=== PATIENT | male | born 1945 | race Caucasian/White ===

== ENCOUNTER 2018-06-09 12:25 | Observation (INO) | payer MEDICARE, OTHER ==
[2018-06-09] MEDS ORDERED: Sodium Chloride 0.9% 10 ML Syringe FLUSH PRN (12:26)
[2018-06-09] MEDS ORDERED: Sodium Chloride 0.9% 2.5 ML Syringe FLUSH PRN (12:26)
--- NOTE | 2018-06-09 12:28 | EDM.PDOC ---
ED HPI GENERAL MEDICAL PROBLEM - General Chief Complaint: Respiratory Problem Stated Complaint: SHORTNESS OF BREATH Time Seen by Provider: 06/09/18 12:27 Source of Information: Reports: Patient History Limitations: Reports: No Limitations - History of Present Illness INITIAL COMMENTS - FREE TEXT/NARRATIVE: HISTORY AND PHYSICAL: History of present illness: Patient is a 73-year-old male presents to the ED with complaint of shortness of breath. 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 Patient is normally on 3 L nasal cannula at home since January when he had pneumonia and pleural effusion. He states he has had shortness of breath since yesterday but denies chest pain. He has a chronic productive cough which he states is unchanged. He denies fevers or chills, nausea, vomiting, diarrhea, abdominal pain. He has been having the pleural effusions drained about every 6 weeks, last time being 2 weeks ago. Review of systems: As per history of present illness and below otherwise all systems reviewed and negative. Past medical history: As per history of present illness and as reviewed below otherwise noncontributory. Surgical history: As per history of present illness and as reviewed below otherwise noncontributory. Social history: No reported history of drug or alcohol abuse. Family history: As per history of present illness and as reviewed below otherwise noncontributory. Physical exam: General: Patient sitting comfortably in no acute distress and nontoxic appearing HEENT: Atraumatic, normocephalic, pupils reactive, negative for conjunctival pallor or scleral icterus, mucous membranes moist, throat clear, neck supple, nontender, trachea midline. No meningeal signs. Lungs: Diffuse rhonchi and wheezing, chest nontender. Heart: S1S2, regular, negative for clicks, rubs, or overt murmur. Abdomen: Soft, nondistended, nontender. Negative for masses or hepatosplenomegaly. Negative for costovertebral tenderness. Pelvis: Stable nontender. Genitourinary: Deferred. Rectal: Deferred. Extremities: Atraumatic, negative for cords or calf pain. Neurovascular unremarkable. Neuro: Awake, alert, oriented. Cranial nerves II through XII unremarkable. Cerebellum unremarkable. Motor and sensory unremarkable throughout. Exam nonfocal. Notes: Diagnostics: CBC, CMP, troponin, chest x-ray, EKG Therapeutics: DuoNeb O2 Prescriptions: None Impression: Pleural effusion, hypoxia Plan: Discussed with Dr. Appiah, patient will be admitted to observation for hypoxia and possible thoracentesis. Definitive disposition and diagnosis as appropriate pending reevaluation and review of above. - Related Data Allergies Allergy/AdvReac Type Severity Reaction Status Date / Time No Known Allergies Allergy Verified 10/13/14 08:28 Home Meds: Home Meds Calcium Carbonate/Vitamin D3 [Calcium 500-Vit D3 200 Caplet] 1 tab PO BID [History] Fish Oil/[place]-3 Fatty Acids [Fish Oil 1,000 MG] 1 cap PO TID 06/09/18 [History] Leuprolide Acetate [Eligard] 45 mg SQ ASDIRECTED 06/09/18 [History] Mirtazapine 30 mg PO BEDTIME 06/09/18 [History] Prochlorperazine Maleate [Compazine] 10 mg PO Q6H PRN 06/09/18 [History] Tamsulosin [Flomax] 0.4 mg PO DAILY 06/09/18 [History] atorvaSTATin [Lipitor] 06/09/18 [History] predniSONE [Prednisone] 5 mg PO BID 06/09/18 [History] ED ROS GENERAL - Review of Systems Review Of Systems: ROS reveals no pertinent complaints other than HPI. ED EXAM, GENERAL - Physical Exam Exam: See Below (See dictation) Course - Vital Signs Last Recorded V/S: Last Vital Signs Temp 97.8 F 06/09/18 12:35 Pulse Resp BP Pulse Ox 97 06/09/18 12:26 - Orders/Labs/Meds Orders: Active Orders 24 hr Category Date Time Status EKG Documentation Completion [RC] STAT Care 06/09/18 12:26 Active Oxygen Therapy [RC] ASDIRECTED Care 06/09/18 12:26 Active RT Aerosol Therapy [RC] ASDIRECTED Care 06/09/18 12:37 Active CULTURE SPUTUM + SMEAR [RM] Stat Lab 06/09/18 12:55 Results Sodium Chloride 0.9% [Saline Flush] Med 06/09/18 12:26 Active 10 ml FLUSH ASDIRECTED PRN Sodium Chloride 0.9% [Saline Flush] Med 06/09/18 12:26 Active 2.5 ml FLUSH ASDIRECTED PRN Saline Lock Insert [OM.PC] Stat Oth 06/09/18 12:26 Ordered Medication Orders Sodium Chloride (Saline Flush) 10 ml FLUSH ASDIRECTED PRN PRN Reason: Keep Vein Open Sodium Chloride (Saline Flush) 2.5 ml FLUSH ASDIRECTED PRN PRN Reason: Keep Vein Open Labs: Laboratory Tests 06/09/18 06/09/18 06/09/18 Range/Units 12:55 12:55 12:55 WBC 7.32 (4.0-11.0) K/uL RBC 3.72 L (4.50-5.90) M/uL Hgb 10.2 L (13.0-17.0) g/dL Hct 34.2 L (38.0-50.0) % MCV 91.9 (80.0-98.0) fL MCH 27.4 (27.0-32.0) pg MCHC 29.8 L (31.0-37.0) g/dL RDW Std Deviation 72.0 H (28.0-62.0) fl RDW Coeff of Ben 21 H (11.0-15.0) % Plt Count 271 (150-400) K/uL MPV 8.20 (7.40-12.00) fL Neut % (Auto) 84.9 H (48.0-80.0) % Lymph % (Auto) 4.2 L (16.0-40.0) % Crowley % (Auto) 10.5 (0.0-15.0) % Eos % (Auto) 0.1 (0.0-7.0) % Baso % (Auto) 0.3 (0.0-1.5) % Neut # (Auto) 6.2 H (1.4-5.7) K/uL Lymph # (Auto) 0.3 L (0.6-2.4) K/uL Crowley # (Auto) 0.8 (0.0-0.8) K/uL Eos # (Auto) 0.0 (0.0-0.7) K/uL Baso # (Auto) 0.0 (0.0-0.1) K/uL Nucleated RBC % 0.0 /100WBC Nucleated RBCs # 0 K/uL Sodium 143 (136-148) mmol/L Potassium 4.1 (3.5-5.1) mmol/L Chloride 102 (98-107) mmol/L Carbon Dioxide 37.8 H (21.0-32.0) mmol/L BUN 24 H (7.0-18.0) mg/dL Creatinine 0.6 L (0.8-1.3) mg/dL Est Cr Clr Drug Dosing 116.38 mL/min Estimated GFR (MDRD) > 60.0 ml/min Glucose 110 H (74-106) mg/dL Calcium 9.3 (8.5-10.1) mg/dL Total Bilirubin 0.2 (0.2-1.0) mg/dL AST 13 L (15-37) IU/L ALT 21 (14-63) IU/L Alkaline Phosphatase 89 (46-116) U/L Troponin I < 0.050 (0.000-0.056) ng/mL B-Natriuretic Peptide 30 (<100) PG/ML Total Protein 6.7 (6.4-8.2) g/dL Albumin 2.3 L (3.4-5.0) g/dL Globulin 4.4 H (2.6-4.0) g/dL Albumin/Globulin Ratio 0.5 L (0.9-1.6) Meds: Medications Generic Name Dose Route Start Last Admin Trade Name Freq PRN Reason Stop Dose Admin Sodium Chloride 10 ml 06/09/18 12:26 Saline Flush FLUSH ASDIRECTED PRN Keep Vein Open Sodium Chloride 2.5 ml 06/09/18 12:26 Saline Flush FLUSH ASDIRECTED PRN Keep Vein Open Discontinued Medications Generic Name Dose Route Start Last Admin Trade Name Freq PRN Reason Stop Dose Admin Albuterol/Ipratropium 3 ml 06/09/18 12:37 06/09/18 12:45 Duoneb 3.0-0.5 Mg/3 Ml NEB 06/09/18 12:38 3 ml ONETIME ONE Administration Departure - Departure Time of Disposition: 14:07 Disposition: Home, Self-Care 01 Condition: Good Clinical Impression: Hypoxia, Pleural effusion - Discharge Information Referrals: PCP,Unknown [Primary Care Provider] - Forms: ED Department Discharge - My Orders Last 24 Hours: My Active Orders 06/09/18 12:26 EKG Documentation Completion [RC] STAT Oxygen Therapy [RC] ASDIRECTED Sodium Chloride 0.9% [Saline Flush] 10 ml FLUSH ASDIRECTED PRN Sodium Chloride 0.9% [Saline Flush] 2.5 ml FLUSH ASDIRECTED PRN Saline Lock Insert [OM.PC] Stat 06/09/18 12:37 RT Aerosol Therapy [RC] ASDIRECTED 06/09/18 12:55 CULTURE SPUTUM + SMEAR [RM] Stat - Assessment/Plan Last 24 Hours: My Active Orders 06/09/18 12:26 EKG Documentation Completion [RC] STAT Oxygen Therapy [RC] ASDIRECTED Sodium Chloride 0.9% [Saline Flush] 10 ml FLUSH ASDIRECTED PRN Sodium Chloride 0.9% [Saline Flush] 2.5 ml FLUSH ASDIRECTED PRN Saline Lock Insert [OM.PC] Stat 06/09/18 12:37 RT Aerosol Therapy [RC] ASDIRECTED 06/09/18 12:55 CULTURE SPUTUM + SMEAR [RM] Stat
[2018-06-09] MEDS ORDERED: Albuterol/Ipratropium 3.0-0.5 MG/3 ML Neb Soln NEB ONE (12:37)
--- NOTE | 2018-06-09 13:24 | CR ---
EXAMINATION: Portable chest radiograph. HISTORY: Shortness of breath. FINDINGS: The trachea is midline. The heart is normal in size. There is a moderate left and small right pleural effusion with adjacent atelectasis and/or infiltrate. Extensive diffuse osseous metastatic shaft changes again noted. IMPRESSION: 1. Moderate left and small right pleural effusion.
[2018-06-09 13:30] LABS: CHLORIDE,CL 102 mmol/L (98-107); SODIUM,NA 143 mmol/L (136-148)
[2018-06-09] MEDS ORDERED: Ibuprofen 800 MG Tab PO PRN (14:56)
[2018-06-09] MEDS ORDERED: Polyethylene Glycol 3350 Powder 17 GM Packet PO PRN (14:56)
[2018-06-09] MEDS ORDERED: Docusate Sodium 100 MG Cap PO PRN (14:56)
[2018-06-09] MEDS ORDERED: Temazepam 15 MG Cap PO PRN (14:56)
[2018-06-09] MEDS ORDERED: Ondansetron 4 MG/2 ML SDV IVPUSH PRN (14:56)
[2018-06-09] MEDS ORDERED: Acetaminophen 325 MG Tab PO PRN (14:56)
[2018-06-09] MEDS ORDERED: Ketorolac 30 MG/ML SDV IM PRN (14:56)
[2018-06-09] MEDS ORDERED: Ondansetron 4 MG Tab.DIS PO PRN (14:56)
--- NOTE | 2018-06-09 15:14 | PCM.HP ---
<Andres GutierrezCollin longoria - Last Filed: 06/09/18 15:24> H&P History of Present Illness - General Date of Service: 06/09/18 Admit Problem/Dx: Admission Diagnosis/Problem Admission Diagnosis/Problem Hypoxia - History of Present Illness Initial Comments - Free Text/Narative: Fidel Cavanaugh is a 73 y/o male with history of adenocarcinoma of the prostate with metastases to the lungs. He was at the [facility] where he was suppose to get his chemotherapy, however, he was noted to be hypoxic in the 70's with activity and started on a rebreather. He was sent to the ER from the [facility] where chest xray showed a large left pleural effusion. He was taken off the rebreather and now his O2 sats are in the mid 90's on 3 L mask. No increased work of breathing at rest. States he has been coughing for some months now ever since he was diagnosed with pneumonia few months ago last summer. In addition, states that he had a thoracentesis about 1-2 weeks ago which removed 1.5 pleural fluid. Denies any chest pain. No abdominal pain, dysuria. Has chronic diarrhea. In addition, his lower extremities have pitting edema for months now. Denies any pain. - Related Data Allergies/Adverse Reactions: Allergies Allergy/AdvReac Type Severity Reaction Status Date / Time No Known Allergies Allergy Verified 10/13/14 08:28 Home Medications: Home Meds Calcium Carbonate/Vitamin D3 [Calcium 500-Vit D3 200 Caplet] 1 tab PO BID [History] Fish Oil/[place]-3 Fatty Acids [Fish Oil 1,000 MG] 1 cap PO TID 06/09/18 [History] Leuprolide Acetate [Eligard] 45 mg SQ ASDIRECTED 06/09/18 [History] Mirtazapine 30 mg PO BEDTIME 06/09/18 [History] Prochlorperazine Maleate [Compazine] 10 mg PO Q6H PRN 06/09/18 [History] Tamsulosin [Flomax] 0.4 mg PO DAILY 06/09/18 [History] atorvaSTATin [Lipitor] 06/09/18 [History] predniSONE [Prednisone] 5 mg PO BID 06/09/18 [History] Past Medical History Genitourinary History: Reports: Other (See Below) Other Genitourinary History: metastatic prostate cancer- chemo Social & Family History - Family History Family Medical History: Noncontributory - Tobacco Use Smoking Status *Q: Former Smoker Used Tobacco, but Quit: Yes Month/Year Tobacco Last Used: 1 year ago Second Hand Smoke Exposure: No - Caffeine Use Caffeine Use: Reports: None - Recreational Drug Use Recreational Drug Use: No H&P Review of Systems - Review of Systems: Review Of Systems: ROS reveals no pertinent complaints other than HPI. Exam - Exam Exam: See Below - Vital Signs Vital Signs: Last Vital Signs Temp 36.6 C 06/09/18 12:35 Pulse 91 06/09/18 14:36 Resp 18 06/09/18 14:36 BP 140/73 06/09/18 14:36 Pulse Ox 94 L 06/09/18 14:36 Weight: 73.936 kg - Exam General: Alert, Oriented, Cooperative HEENT: Conjunctiva Clear, Mucosa Moist & [place] Lungs: Other (bibasilar crackles, left greater than right. Decreased breath sounds on left lung. No increased work of breathing.) Cardiovascular: Regular Rate, Regular Rhythm GI/Abdominal Exam: Normal Bowel Sounds, Soft, Non-Tender, No Distention Extremities: Other (3+ pittind edema up to knees bilaterally) Skin: Warm, Dry Neurological: Cranial Nerves Intact Neuro Extensive - Mental Status: Alert, Oriented x3 - Patient Data Lab Results Last 24 hrs: Laboratory Results - last 24 hr 06/09/18 06/09/18 06/09/18 Range/Units 12:55 12:55 12:55 WBC 7.32 (4.0-11.0) K/uL RBC 3.72 L (4.50-5.90) M/uL Hgb 10.2 L (13.0-17.0) g/dL Hct 34.2 L (38.0-50.0) % MCV 91.9 (80.0-98.0) fL MCH 27.4 (27.0-32.0) pg MCHC 29.8 L (31.0-37.0) g/dL RDW Std Deviation 72.0 H (28.0-62.0) fl RDW Coeff of Ben 21 H (11.0-15.0) % Plt Count 271 (150-400) K/uL MPV 8.20 (7.40-12.00) fL Neut % (Auto) 84.9 H (48.0-80.0) % Lymph % (Auto) 4.2 L (16.0-40.0) % Fleming % (Auto) 10.5 (0.0-15.0) % Eos % (Auto) 0.1 (0.0-7.0) % Baso % (Auto) 0.3 (0.0-1.5) % Neut # (Auto) 6.2 H (1.4-5.7) K/uL Lymph # (Auto) 0.3 L (0.6-2.4) K/uL Fleming # (Auto) 0.8 (0.0-0.8) K/uL Eos # (Auto) 0.0 (0.0-0.7) K/uL Baso # (Auto) 0.0 (0.0-0.1) K/uL Nucleated RBC % 0.0 /100WBC Nucleated RBCs # 0 K/uL Sodium 143 (136-148) mmol/L Potassium 4.1 (3.5-5.1) mmol/L Chloride 102 (98-107) mmol/L Carbon Dioxide 37.8 H (21.0-32.0) mmol/L BUN 24 H (7.0-18.0) mg/dL Creatinine 0.6 L (0.8-1.3) mg/dL Est Cr Clr Drug Dosing 116.38 mL/min Estimated GFR (MDRD) > 60.0 ml/min Glucose 110 H (74-106) mg/dL Calcium 9.3 (8.5-10.1) mg/dL Total Bilirubin 0.2 (0.2-1.0) mg/dL AST 13 L (15-37) IU/L ALT 21 (14-63) IU/L Alkaline Phosphatase 89 (46-116) U/L Troponin I < 0.050 (0.000-0.056) ng/mL B-Natriuretic Peptide 30 (<100) PG/ML Total Protein 6.7 (6.4-8.2) g/dL Albumin 2.3 L (3.4-5.0) g/dL Globulin 4.4 H (2.6-4.0) g/dL Albumin/Globulin Ratio 0.5 L (0.9-1.6) Result Diagrams: 06/09/18 12:55 06/09/18 12:55 Rodrigo Results Last 24 hrs: Microbiology 06/09/18 12:32 Influenza Type A Antigen Screen - Final Nasopharyngeal Swab NEGATIVE INFLUENZA A VIRUS AG Influenza Type B Antigen Screen - Final NEGATIVE INFLUENZA B VIRUS AG 06/09/18 12:55 Gram Stain - Preliminary Sputum - Expectorated Problem List Initiated/Reviewed/Updated: Yes Orders Last 24hrs: Active Orders 24 hr Category Date Time Status Admission Status [Patient Status] [ADT] Stat ADT 06/09/18 14:17 Active Oxygen Therapy [RC] ASDIRECTED Care 06/09/18 12:26 Active Oxygen Therapy [RC] PRN Care 06/09/18 14:56 Active RT Aerosol Therapy [RC] ASDIRECTED Care 06/09/18 12:37 Active RT Aerosol Therapy [RC] ASDIRECTED Care 06/09/18 14:58 Active Up ad Kierra [RC] ASDIRECTED Care 06/09/18 14:56 Active VTE/DVT Education [RC] PER UNIT ROUTINE Care 06/09/18 14:56 Active Vital Signs [RC] Q4H Care 06/09/18 14:56 Active PT Evaluation and Treatment [CONS] Routine Cons 06/09/18 14:56 Active Regular Diet [DIET] Diet 06/09/18 Dinner Active CULTURE SPUTUM + SMEAR [RM] Stat Lab 06/09/18 12:55 Results Acetaminophen [Tylenol] Med 06/09/18 14:56 Active 650 mg PO Q4H PRN Albuterol/Ipratropium [DuoNeb 3.0-0.5 MG/3 ML] Med 06/09/18 14:56 Active 3 ml NEB Q4HRRT PRN Docusate Sodium [Colace] Med 06/09/18 14:56 Active 100 mg PO BID PRN Enoxaparin [Lovenox] Med 06/09/18 15:00 Active 40 mg SUBCUT Q24H Ibuprofen [Motrin] Med 06/09/18 14:56 Active 800 mg PO Q6H PRN Ketorolac [Toradol] Med 06/09/18 14:56 Active 30 mg IM Q6H PRN Ondansetron [Zofran ODT] Med 06/09/18 14:56 Active 4 mg PO Q4H PRN Ondansetron [Zofran] Med 06/09/18 14:56 Active 4 mg IVPUSH Q4H PRN Polyethylene Glycol 3350 [MiraLAX] Med 06/09/18 14:56 Active 17 gm PO DAILY PRN Sodium Chloride 0.9% [Saline Flush] Med 06/09/18 12:26 Active 10 ml FLUSH ASDIRECTED PRN Sodium Chloride 0.9% [Saline Flush] Med 06/09/18 12:26 Active 2.5 ml FLUSH ASDIRECTED PRN Temazepam [Restoril] Med 06/09/18 14:56 Active 15 mg PO BEDTIME PRN Saline Lock Insert [OM.PC] Stat Oth 06/09/18 12:26 Ordered Medication Orders Acetaminophen (Tylenol) 650 mg PO Q4H PRN PRN Reason: Pain (Mild 1-3)/fever Albuterol/Ipratropium (Duoneb 3.0-0.5 Mg/3 Ml) 3 ml NEB Q4HRRT PRN PRN Reason: Shortness Of Breath/wheezing Docusate Sodium (Colace) 100 mg PO BID PRN PRN Reason: Constipation Enoxaparin Sodium (Lovenox) 40 mg SUBCUT Q24H JAMES Ibuprofen (Motrin) 800 mg PO Q6H PRN PRN Reason: Pain (mild 1-3) Ketorolac Tromethamine (Toradol) 30 mg IM Q6H PRN PRN Reason: Pain (moderate 4-6) Ondansetron HCl (Zofran Odt) 4 mg PO Q4H PRN PRN Reason: nausea, able to take PO Ondansetron HCl (Zofran) 4 mg IVPUSH Q4H PRN PRN Reason: Nausea Polyethylene Glycol (Miralax) 17 gm PO DAILY PRN PRN Reason: Constipation Sodium Chloride (Saline Flush) 10 ml FLUSH ASDIRECTED PRN PRN Reason: Keep Vein Open Sodium Chloride (Saline Flush) 2.5 ml FLUSH ASDIRECTED PRN PRN Reason: Keep Vein Open Temazepam (Restoril) 15 mg PO BEDTIME PRN PRN Reason: Sleep Assessment/Plan Comment:: A: 1. Acute on chronic hypoxic respiratory failure 2. Left pleural effusion 3. Normocytic anemia 4. Lower extremity edema 5. 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 Admit as observation to the medical floor. 2. Vitals, I/O per floor routine. Supplemental O2. 3. Activity: ad kierra 4. Diet: regular 5. DVT prophylaxis: lovenox 6. Code status: 1. Acute on chronic hypoxic respiratory failure 2/2 to pleural effusions. Will need therapeutic thoracentesis. Continue supplemental O2. 2. Normocytic anemia, likely 2/2 to chemoradiation. Continue to monitor. 3. Lower extremity edema. Likely 2/2 to history of radiation therapy of the prostate and mets to lungs. Will order Echo. Will do trial of lasix and see if his blood pressure remains stable. Dispo: 1-2 days <Manuel Appiah - Last Filed: 06/09/18 15:40> H&P History of Present Illness - General Admit Problem/Dx: Admission Diagnosis/Problem Admission Diagnosis/Problem Hypoxia I have seen and examined the patient independently of medical office professional instructor. I have discussed the case with the resident. I agree with the assessment and plan of care outlined for this patient. Please see orders. May need pleuradex for frequently reoccurring pleural effusions. Exam - Vital Signs Vital Signs: Last Vital Signs Temp 36.8 C 06/09/18 15:07 Pulse 84 06/09/18 15:07 Resp 20 06/09/18 15:07 BP 139/74 06/09/18 15:07 Pulse Ox 97 06/09/18 15:07 - Patient Data Lab Results Last 24 hrs: Laboratory Results - last 24 hr 06/09/18 06/09/18 06/09/18 Range/Units 12:55 12:55 12:55 WBC 7.32 (4.0-11.0) K/uL RBC 3.72 L (4.50-5.90) M/uL Hgb 10.2 L (13.0-17.0) g/dL Hct 34.2 L (38.0-50.0) % MCV 91.9 (80.0-98.0) fL MCH 27.4 (27.0-32.0) pg MCHC 29.8 L (31.0-37.0) g/dL RDW Std Deviation 72.0 H (28.0-62.0) fl RDW Coeff of Ben 21 H (11.0-15.0) % Plt Count 271 (150-400) K/uL MPV 8.20 (7.40-12.00) fL Neut % (Auto) 84.9 H (48.0-80.0) % Lymph % (Auto) 4.2 L (16.0-40.0) % Fleming % (Auto) 10.5 (0.0-15.0) % Eos % (Auto) 0.1 (0.0-7.0) % Baso % (Auto) 0.3 (0.0-1.5) % Neut # (Auto) 6.2 H (1.4-5.7) K/uL Lymph # (Auto) 0.3 L (0.6-2.4) K/uL Fleming # (Auto) 0.8 (0.0-0.8) K/uL Eos # (Auto) 0.0 (0.0-0.7) K/uL Baso # (Auto) 0.0 (0.0-0.1) K/uL Nucleated RBC % 0.0 /100WBC Nucleated RBCs # 0 K/uL Sodium 143 (136-148) mmol/L Potassium 4.1 (3.5-5.1) mmol/L Chloride 102 (98-107) mmol/L Carbon Dioxide 37.8 H (21.0-32.0) mmol/L BUN 24 H (7.0-18.0) mg/dL Creatinine 0.6 L (0.8-1.3) mg/dL Est Cr Clr Drug Dosing 116.38 mL/min Estimated GFR (MDRD) > 60.0 ml/min Glucose 110 H (74-106) mg/dL Calcium 9.3 (8.5-10.1) mg/dL Total Bilirubin 0.2 (0.2-1.0) mg/dL AST 13 L (15-37) IU/L ALT 21 (14-63) IU/L Alkaline Phosphatase 89 (46-116) U/L Troponin I < 0.050 (0.000-0.056) ng/mL B-Natriuretic Peptide 30 (<100) PG/ML Total Protein 6.7 (6.4-8.2) g/dL Albumin 2.3 L (3.4-5.0) g/dL Globulin 4.4 H (2.6-4.0) g/dL Albumin/Globulin Ratio 0.5 L (0.9-1.6) Result Diagrams: 06/09/18 12:55 06/09/18 12:55 Rodrigo Results Last 24 hrs: Microbiology 06/09/18 12:32 Influenza Type A Antigen Screen - Final Nasopharyngeal Swab NEGATIVE INFLUENZA A VIRUS AG Influenza Type B Antigen Screen - Final NEGATIVE INFLUENZA B VIRUS AG 06/09/18 12:55 Gram Stain - Preliminary Sputum - Expectorated Orders Last 24hrs: Active Orders 24 hr Category Date Time Status Admission Status [Patient Status] [ADT] Stat ADT 06/09/18 14:17 Active Intake and Output Strict [RC] ASDIRECTED Care 06/09/18 15:34 Active Oxygen Therapy [RC] ASDIRECTED Care 06/09/18 12:26 Active Oxygen Therapy [RC] PRN Care 06/09/18 14:56 Active RT Aerosol Therapy [RC] ASDIRECTED Care 06/09/18 12:37 Active RT Aerosol Therapy [RC] ASDIRECTED Care 06/09/18 14:58 Active Up ad Kierra [RC] ASDIRECTED Care 06/09/18 14:56 Active VTE/DVT Education [RC] PER UNIT ROUTINE Care 06/09/18 14:56 Active Vital Signs [RC] Q4H Care 06/09/18 14:56 Active PT Evaluation and Treatment [CONS] Routine Cons 06/09/18 14:56 Active Regular Diet [DIET] Diet 06/09/18 Dinner Active Echo 2D wo Cont [US] Routine Exams 06/09/18 15:36 Ordered CULTURE SPUTUM + SMEAR [RM] Stat Lab 06/09/18 12:55 Results Acetaminophen [Tylenol] Med 06/09/18 14:56 Active 650 mg PO Q4H PRN Albuterol/Ipratropium [DuoNeb 3.0-0.5 MG/3 ML] Med 06/09/18 14:56 Active 3 ml NEB Q4HRRT PRN Docusate Sodium [Colace] Med 06/09/18 14:56 Active 100 mg PO BID PRN Enoxaparin [Lovenox] Med 06/09/18 15:00 Active 40 mg SUBCUT Q24H Ibuprofen [Motrin] Med 06/09/18 14:56 Active 800 mg PO Q6H PRN Ketorolac [Toradol] Med 06/09/18 14:56 Active 30 mg IM Q6H PRN Ondansetron [Zofran ODT] Med 06/09/18 14:56 Active 4 mg PO Q4H PRN Ondansetron [Zofran] Med 06/09/18 14:56 Active 4 mg IVPUSH Q4H PRN Polyethylene Glycol 3350 [MiraLAX] Med 06/09/18 14:56 Active 17 gm PO DAILY PRN Sodium Chloride 0.9% [Saline Flush] Med 06/09/18 12:26 Active 10 ml FLUSH ASDIRECTED PRN Sodium Chloride 0.9% [Saline Flush] Med 06/09/18 12:26 Active 2.5 ml FLUSH ASDIRECTED PRN Temazepam [Restoril] Med 06/09/18 14:56 Active 15 mg PO BEDTIME PRN Saline Lock Insert [OM.PC] Stat Oth 06/09/18 12:26 Ordered Resuscitation Status Routine Resus Stat 06/09/18 15:33 Ordered Medication Orders Acetaminophen (Tylenol) 650 mg PO Q4H PRN PRN Reason: Pain (Mild 1-3)/fever Albuterol/Ipratropium (Duoneb 3.0-0.5 Mg/3 Ml) 3 ml NEB Q4HRRT PRN PRN Reason: Shortness Of Breath/wheezing Docusate Sodium (Colace) 100 mg PO BID PRN PRN Reason: Constipation Enoxaparin Sodium (Lovenox) 40 mg SUBCUT Q24H JAMES Ibuprofen (Motrin) 800 mg PO Q6H PRN PRN Reason: Pain (mild 1-3) Ketorolac Tromethamine (Toradol) 30 mg IM Q6H PRN PRN Reason: Pain (moderate 4-6) Ondansetron HCl (Zofran Odt) 4 mg PO Q4H PRN PRN Reason: nausea, able to take PO Ondansetron HCl (Zofran) 4 mg IVPUSH Q4H PRN PRN Reason: Nausea Polyethylene Glycol (Miralax) 17 gm PO DAILY PRN PRN Reason: Constipation Sodium Chloride (Saline Flush) 10 ml FLUSH ASDIRECTED PRN PRN Reason: Keep Vein Open Sodium Chloride (Saline Flush) 2.5 ml FLUSH ASDIRECTED PRN PRN Reason: Keep Vein Open Temazepam (Restoril) 15 mg PO BEDTIME PRN PRN Reason: Sleep
[2018-06-09] MEDS ORDERED: Prochlorperazine 10 MG Tab PO PRN (15:37)
[2018-06-09] MEDS ORDERED: Furosemide 20 MG/2 ML VIAL IVPUSH ONE (15:40)
[2018-06-09] MEDS ORDERED: Morphine 2 MG/ML Syringe IVPUSH PRN (15:44)
[2018-06-09] MEDS: Enoxaparin 40 MG/0.4 ML Syringe SUBCUT SCH (16:13)
[2018-06-09] MEDS: Albuterol/Ipratropium 3.0-0.5 MG/3 ML Neb Soln NEB PRN (21:04)
[2018-06-09] MEDS: Mirtazapine 15 MG Tab PO SCH (21:06)
[2018-06-09] MEDS: Fish Oil/Omega-3 Fatty Acids 1 Gm Cap PO SCH (21:06)
[2018-06-09] MEDS: Calcium Carbonate/Vitamin D3 1500 MG-400 Units Tab PO SCH (21:06)
[2018-06-09] MEDS: predniSONE 5 MG Tab PO SCH (21:06)
[2018-06-10] MEDS: Fish Oil/Omega-3 Fatty Acids 1 Gm Cap PO SCH ×3 (05:49→20:59)
[2018-06-10 06:23] LABS: CHLORIDE,CL 103 mmol/L (98-107); SODIUM,NA 143 mmol/L (136-148)
[2018-06-10] MEDS: Albuterol/Ipratropium 3.0-0.5 MG/3 ML Neb Soln NEB PRN ×3 (06:54→20:54)
[2018-06-10] MEDS: Calcium Carbonate/Vitamin D3 1500 MG-400 Units Tab PO SCH ×2 (08:08→20:54)
[2018-06-10] MEDS: Tamsulosin 0.4 MG Cap.ER PO SCH (08:09)
[2018-06-10] MEDS: predniSONE 5 MG Tab PO SCH ×2 (08:09→20:54)
[2018-06-10 09:29] LABS: HEMOGLOBIN A1C 6.3 % (4.5-6.2)
--- NOTE | 2018-06-10 11:29 | PCM.PN ---
- General Info Date of Service: 06/10/18 Subjective Update: No acute events overnight. On 2 L NC satting mid 90's. Denies chest pain. Pending diagnostic and therapeutic thoracentesis. - Patient Data Vitals - Most Recent: Last Vital Signs Temp 36.4 C 06/10/18 11:00 Pulse 81 06/10/18 11:00 Resp 20 06/10/18 11:00 BP 128/70 06/10/18 11:00 Pulse Ox 92 L 06/10/18 11:00 Weight - Most Recent: 73 kg I&O - Last 24 Hours: Intake & Output 06/09/18 06/10/18 06/10/18 22:59 06:59 14:59 Intake Total 300 350 Output Total 300 2150 Balance 0 -1800 Lab Results Last 24 Hours: Laboratory Results - last 24 hr 06/09/18 06/09/18 06/09/18 Range/Units 12:55 12:55 12:55 WBC 7.32 (4.0-11.0) K/uL RBC 3.72 L (4.50-5.90) M/uL Hgb 10.2 L (13.0-17.0) g/dL Hct 34.2 L (38.0-50.0) % MCV 91.9 (80.0-98.0) fL MCH 27.4 (27.0-32.0) pg MCHC 29.8 L (31.0-37.0) g/dL RDW Std Deviation 72.0 H (28.0-62.0) fl RDW Coeff of Ben 21 H (11.0-15.0) % Plt Count 271 (150-400) K/uL MPV 8.20 (7.40-12.00) fL Neut % (Auto) 84.9 H (48.0-80.0) % Lymph % (Auto) 4.2 L (16.0-40.0) % Citrus % (Auto) 10.5 (0.0-15.0) % Eos % (Auto) 0.1 (0.0-7.0) % Baso % (Auto) 0.3 (0.0-1.5) % Neut # (Auto) 6.2 H (1.4-5.7) K/uL Lymph # (Auto) 0.3 L (0.6-2.4) K/uL [place] # (Auto) 0.8 (0.0-0.8) K/uL Eos # (Auto) 0.0 (0.0-0.7) K/uL Baso # (Auto) 0.0 (0.0-0.1) K/uL Nucleated RBC % 0.0 /100WBC Nucleated RBCs # 0 K/uL INR Sodium 143 (136-148) mmol/L Potassium 4.1 (3.5-5.1) mmol/L Chloride 102 (98-107) mmol/L Carbon Dioxide 37.8 H (21.0-32.0) mmol/L BUN 24 H (7.0-18.0) mg/dL Creatinine 0.6 L (0.8-1.3) mg/dL Est Cr Clr Drug Dosing 116.38 mL/min Estimated GFR (MDRD) > 60.0 ml/min Glucose 110 H (74-106) mg/dL Hemoglobin A1c (4.5-6.2) % Calcium 9.3 (8.5-10.1) mg/dL Total Bilirubin 0.2 (0.2-1.0) mg/dL AST 13 L (15-37) IU/L ALT 21 (14-63) IU/L Alkaline Phosphatase 89 (46-116) U/L Lactate Dehydrogenase (81-234) U/L Troponin I < 0.050 (0.000-0.056) ng/mL B-Natriuretic Peptide 30 (<100) PG/ML Total Protein 6.7 (6.4-8.2) g/dL Albumin 2.3 L (3.4-5.0) g/dL Globulin 4.4 H (2.6-4.0) g/dL Albumin/Globulin Ratio 0.5 L (0.9-1.6) 06/10/18 06/10/18 06/10/18 Range/Units 05:50 05:50 05:50 WBC 6.62 (4.0-11.0) K/uL RBC 3.90 L (4.50-5.90) M/uL Hgb 10.7 L (13.0-17.0) g/dL Hct 35.9 L (38.0-50.0) % MCV 92.1 (80.0-98.0) fL MCH 27.4 (27.0-32.0) pg MCHC 29.8 L (31.0-37.0) g/dL RDW Std Deviation 71.9 H (28.0-62.0) fl RDW Coeff of Ben 21 H (11.0-15.0) % Plt Count 294 (150-400) K/uL MPV 8.80 (7.40-12.00) fL Neut % (Auto) 81.4 H (48.0-80.0) % Lymph % (Auto) 16.9 (16.0-40.0) % [place] % (Auto) 0.6 (0.0-15.0) % Eos % (Auto) 0.8 (0.0-7.0) % Baso % (Auto) 0.3 (0.0-1.5) % Neut # (Auto) 5.4 (1.4-5.7) K/uL Lymph # (Auto) 1.1 (0.6-2.4) K/uL [place] # (Auto) 0.0 (0.0-0.8) K/uL Eos # (Auto) 0.1 (0.0-0.7) K/uL Baso # (Auto) 0.0 (0.0-0.1) K/uL Nucleated RBC % 0.0 /100WBC Nucleated RBCs # 0 K/uL INR Sodium 143 (136-148) mmol/L Potassium 4.6 (3.5-5.1) mmol/L Chloride 103 (98-107) mmol/L Carbon Dioxide 41.7 H (21.0-32.0) mmol/L BUN 15 (7.0-18.0) mg/dL Creatinine 0.6 L (0.8-1.3) mg/dL Est Cr Clr Drug Dosing 114.91 mL/min Estimated GFR (MDRD) > 60.0 ml/min Glucose 133 H (74-106) mg/dL Hemoglobin A1c 6.3 H (4.5-6.2) % Calcium 9.2 (8.5-10.1) mg/dL Total Bilirubin 0.2 (0.2-1.0) mg/dL AST 18 (15-37) IU/L ALT 20 (14-63) IU/L Alkaline Phosphatase 79 (46-116) U/L Lactate Dehydrogenase (81-234) U/L Troponin I (0.000-0.056) ng/mL B-Natriuretic Peptide (<100) PG/ML Total Protein 6.3 L (6.4-8.2) g/dL Albumin 2.2 L (3.4-5.0) g/dL Globulin 4.1 H (2.6-4.0) g/dL Albumin/Globulin Ratio 0.5 L (0.9-1.6) 06/10/18 06/10/18 Range/Units 05:53 08:34 WBC (4.0-11.0) K/uL RBC (4.50-5.90) M/uL Hgb (13.0-17.0) g/dL Hct (38.0-50.0) % MCV (80.0-98.0) fL MCH (27.0-32.0) pg MCHC (31.0-37.0) g/dL RDW Std Deviation (28.0-62.0) fl RDW Coeff of Ben (11.0-15.0) % Plt Count (150-400) K/uL MPV (7.40-12.00) fL Neut % (Auto) (48.0-80.0) % Lymph % (Auto) (16.0-40.0) % [place] % (Auto) (0.0-15.0) % Eos % (Auto) (0.0-7.0) % Baso % (Auto) (0.0-1.5) % Neut # (Auto) (1.4-5.7) K/uL Lymph # (Auto) (0.6-2.4) K/uL [place] # (Auto) (0.0-0.8) K/uL Eos # (Auto) (0.0-0.7) K/uL Baso # (Auto) (0.0-0.1) K/uL Nucleated RBC % /100WBC Nucleated RBCs # K/uL INR 1.05 Sodium (136-148) mmol/L Potassium (3.5-5.1) mmol/L Chloride (98-107) mmol/L Carbon Dioxide (21.0-32.0) mmol/L BUN (7.0-18.0) mg/dL Creatinine (0.8-1.3) mg/dL Est Cr Clr Drug Dosing mL/min Estimated GFR (MDRD) ml/min Glucose (74-106) mg/dL Hemoglobin A1c (4.5-6.2) % Calcium (8.5-10.1) mg/dL Total Bilirubin (0.2-1.0) mg/dL AST (15-37) IU/L ALT (14-63) IU/L Alkaline Phosphatase (46-116) U/L Lactate Dehydrogenase 257 H (81-234) U/L Troponin I (0.000-0.056) ng/mL B-Natriuretic Peptide (<100) PG/ML Total Protein (6.4-8.2) g/dL Albumin (3.4-5.0) g/dL Globulin (2.6-4.0) g/dL Albumin/Globulin Ratio (0.9-1.6) Rodrigo Results Last 24 Hours: Microbiology 06/09/18 12:55 Gram Stain - Final Sputum - Expectorated 06/09/18 12:32 Influenza Type A Antigen Screen - Final Nasopharyngeal Swab NEGATIVE INFLUENZA A VIRUS AG Influenza Type B Antigen Screen - Final NEGATIVE INFLUENZA B VIRUS AG Med Orders - Current: Current Medications Acetaminophen (Tylenol) 650 mg PO Q4H PRN PRN Reason: Pain (Mild 1-3)/fever Albuterol/Ipratropium (Duoneb 3.0-0.5 Mg/3 Ml) 3 ml NEB Q4HRRT PRN PRN Reason: Shortness Of Breath/wheezing Last Admin: 06/10/18 10:10 Dose: 3 ml Atorvastatin Calcium (Lipitor) 10 mg PO BEDTIME [facility] Calcium Carbonate (Caltrate 600+D 1500 Mg-400 Units) 1 tab PO BID [facility] Last Admin: 06/10/18 08:08 Dose: 1 tab Docusate Sodium (Colace) 100 mg PO BID PRN PRN Reason: Constipation Enoxaparin Sodium (Lovenox) 40 mg SUBCUT Q24H [facility] Last Admin: 06/09/18 16:13 Dose: 40 mg Fish Oil (Fish Oil) 1 gm PO TID [facility] Last Admin: 06/10/18 05:49 Dose: 1 gm Ibuprofen (Motrin) 800 mg PO Q6H PRN PRN Reason: Pain (mild 1-3) Ketorolac Tromethamine (Toradol) 30 mg IM Q6H PRN PRN Reason: Pain (moderate 4-6) Mirtazapine (Remeron) 30 mg PO BEDTIME [facility] Last Admin: 06/09/18 21:06 Dose: 30 mg Morphine Sulfate (Morphine) 2 mg IVPUSH Q2H PRN PRN Reason: Pain Ondansetron HCl (Zofran Odt) 4 mg PO Q4H PRN PRN Reason: nausea, able to take PO Ondansetron HCl (Zofran) 4 mg IVPUSH Q4H PRN PRN Reason: Nausea Polyethylene Glycol (Miralax) 17 gm PO DAILY PRN PRN Reason: Constipation Prednisone (Prednisone) 5 mg PO BID [facility] Last Admin: 06/10/18 08:09 Dose: 5 mg Prochlorperazine Maleate (Compazine) 10 mg PO Q6H PRN PRN Reason: Nausea Sodium Chloride (Saline Flush) 10 ml FLUSH ASDIRECTED PRN PRN Reason: Keep Vein Open Sodium Chloride (Saline Flush) 2.5 ml FLUSH ASDIRECTED PRN PRN Reason: Keep Vein Open Tamsulosin HCl (Flomax) 0.4 mg PO DAILY [facility] Last Admin: 06/10/18 08:09 Dose: 0.4 mg Temazepam (Restoril) 15 mg PO BEDTIME PRN PRN Reason: Sleep Discontinued Medications Albuterol/Ipratropium (Duoneb 3.0-0.5 Mg/3 Ml) 3 ml NEB ONETIME ONE Stop: 06/09/18 12:38 Last Admin: 06/09/18 12:45 Dose: 3 ml Furosemide (Lasix) 20 mg IVPUSH NOW ONE Stop: 06/09/18 15:41 Last Admin: 06/09/18 16:13 Dose: 20 mg - Exam General: Alert, Oriented, Cooperative, No Acute Distress Lungs: Other (Decreased breath sounds on left lung. Crackles present.) Cardiovascular: Regular Rate, Regular Rhythm GI/Abdominal Exam: Normal Bowel Sounds, Soft, Non-Tender Extremities: Pedal Edema Skin: Warm, Dry Neurological: No New Focal Deficit - Problem List Review Problem List Initiated/Reviewed/Updated: Yes - My Orders Last 24 Hours: My Active Orders 06/09/18 14:56 Oxygen Therapy [RC] PRN Up ad Kierra [RC] ASDIRECTED VTE/DVT Education [RC] PER UNIT ROUTINE Vital Signs [RC] Q4H PT Evaluation and Treatment [CONS] Routine Acetaminophen [Tylenol] 650 mg PO Q4H PRN Albuterol/Ipratropium [DuoNeb 3.0-0.5 MG/3 ML] 3 ml NEB Q4HRRT PRN Docusate Sodium [Colace] 100 mg PO BID PRN Ibuprofen [Motrin] 800 mg PO Q6H PRN Ketorolac [Toradol] 30 mg IM Q6H PRN Ondansetron [Zofran ODT] 4 mg PO Q4H PRN Ondansetron [Zofran] 4 mg IVPUSH Q4H PRN Polyethylene Glycol 3350 [MiraLAX] 17 gm PO DAILY PRN Temazepam [Restoril] 15 mg PO BEDTIME PRN 06/09/18 14:58 RT Aerosol Therapy [RC] ASDIRECTED 06/09/18 15:00 Enoxaparin [Lovenox] 40 mg SUBCUT Q24H 06/09/18 15:33 Resuscitation Status Routine 06/09/18 15:34 Intake and Output Strict [RC] Q12H 06/09/18 15:37 Prochlorperazine [Compazine] 10 mg PO Q6H PRN 06/09/18 15:44 Morphine 2 mg IVPUSH Q2H PRN 06/09/18 21:00 Calcium Carbonate/Vitamin D3 [Caltrate 600+D 1500 MG-400 Units] 1 tab PO BID Mirtazapine [Remeron] 30 mg PO BEDTIME predniSONE 5 mg PO BID 06/09/18 22:00 Fish Oil/[place]-3 Fatty Acids [Fish Oil] 1 gm PO TID 06/09/18 Dinner Regular Diet [DIET] 06/10/18 09:00 Tamsulosin [Flomax] 0.4 mg PO DAILY 06/10/18 09:58 ALBUMIN,BODY FLUID [BF] Routine CELL COUNT,BODY FLUID [BF] Routine CULTURE BODY FLUID + SMEAR [RM] Routine GLUCOSE,BODY FLUID [BF] Routine PH,BODY FLUID [BF] Routine PROTEIN,BODY FLUID [BF] Routine 06/10/18 10:02 LACTATE DEHYDROGENASE,BODY FL [BF] Routine 06/10/18 11:00 Echo Comp wo Cont [US] Routine 06/10/18 11:30 Thoracentesis W/ US Guide [US] Routine 06/10/18 21:00 atorvaSTATin [Lipitor] 10 mg PO BEDTIME - Plan Plan:: A: 1. Acute on chronic hypoxic respiratory failure 2. Left pleural effusion 3. Normocytic anemia 4. Pedal edema 5. 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 Acute on chronic hypoxic respiratory failure 2/2 pleural effusions. Will undergo therapeutic and diagnostic left thoracentesis. Ordered fluid studies. Continue with supplemental O2. 2. Pedal edema. Pending Echo today. Will give another dose of lasix 20 mg IV once. Monitor I/O's. Dispo: plant for tomorrow
--- NOTE | 2018-06-10 15:35 | US ---
EXAMINATION: Ultrasound guided left thoracentesis. HISTORY: Left pleural effusion. Technique/findings: The procedure, benefits and risks were discussed with the patient. Following written informed consent was obtained from the patient, under ultrasound guidance and utilizing 1% lidocaine as local anesthesia the left pleural effusion was accessed using a 5 Chinese one-step needle. Following access the catheter was placed into the effusion, 1500 cc of pleural effusion was drained. US images demonstrate moderate resolution of the pleural effusion. The patient tolerated the procedure well. IMPRESSION: Successful ultrasound guided left thoracentesis. Fluid was light brown.
[2018-06-10] MEDS: Enoxaparin 40 MG/0.4 ML Syringe SUBCUT SCH (15:57)
[2018-06-10] MEDS: Mirtazapine 15 MG Tab PO SCH (20:54)
[2018-06-10] MEDS ORDERED: atorvaSTATin 10 MG Tab PO SCH (21:00)
[2018-06-11] MEDS: Fish Oil/Omega-3 Fatty Acids 1 Gm Cap PO SCH (05:40)
[2018-06-11 05:59] LABS: CHLORIDE,CL 103 mmol/L (98-107); SODIUM,NA 142 mmol/L (136-148)
[2018-06-11] MEDS: predniSONE 5 MG Tab PO SCH (08:52)
[2018-06-11] MEDS: Tamsulosin 0.4 MG Cap.ER PO SCH (08:52)
[2018-06-11] MEDS: Calcium Carbonate/Vitamin D3 1500 MG-400 Units Tab PO SCH (08:52)
--- NOTE | 2018-06-11 09:04 | PCM.DCSUM1 ---
Discharge Summary - Hospital Course Free Text/Narrative:: Admission date: 06/09/18 Discharge date: 06/11/18 Admission diagnosis: 1. Acute on chronic hypoxic respiratory failure 2. Left pleural effusion 3. Lower extremity edema 4. Normocytic anemia 5. PMH prostate cancer with metastases to lungs Discharge diagnosis: 1. Acute on chronic hypoxic respiratory failure, improved 2. Recurrent left pleural effusion, s/p left thoracentesis 3. Lower extremity edema, improved 4. Normocytic anemia, stable 5. PMH prostate cancer with metastases to lungs Hospital course: Fidel Cavanaugh is a 73 y/o male with history of prostate adenocarcinoma with metastases to lungs who was admitted for acute on chronic respiratory failure after he became hypoxic into the 70's [facility]. He was found to have bilateral pleural effusions, left greater than right. He remained stable on 2-3L O2 NC and subsequently underwent a therapeutic left thoracentesis which removed approximately 1500 mls. He shortness of breath symptoms improved and remained stable needing 2-3 L O2 while hospitalized. He has home oxygen at that seems to be his baseline. In addition, he was discharged home on Lasix 20 mg PO daily and compression stockings since that seemed to help his lower extremity edema. An Echo was performed with results still pending at time of discharge. Follow-up: 1. Primary care provider - Discharge Data Discharge Date: 06/11/18 Discharge Disposition: Home, Self-Care 01 Condition: Good - Patient Summary/Data Consults: Consultations 06/09/18 14:56 PT Evaluation and Treatment [CONS] Routine - Patient Instructions Diet: Regular Diet as Tolerated Activity: As Tolerated Notify Provider of: Fever, Increased Pain, Swelling and Redness, Nausea and/or Vomiting - Discharge Plan *PRESCRIPTION DRUG MONITORING PROGRAM REVIEWED*: Not Applicable *COPY OF PRESCRIPTION DRUG MONITORING REPORT IN PATIENT BILL: Not Applicable Prescriptions/Med Rec: Furosemide [Lasix] 20 mg PO DAILY 30 Days #30 tab Home Medications: Home Meds Calcium Carbonate/Vitamin D3 [Calcium 500-Vit D3 200 Caplet] 1 tab PO BID [History] Fish Oil/[place]-3 Fatty Acids [Fish Oil 1,000 MG] 1 cap PO TID 06/09/18 [History] Leuprolide Acetate [Eligard] 45 mg SQ ASDIRECTED 06/09/18 [History] Mirtazapine 30 mg PO BEDTIME 06/09/18 [History] Prochlorperazine Maleate [Compazine] 10 mg PO Q6H PRN 06/09/18 [History] Tamsulosin [Flomax] 0.4 mg PO DAILY 06/09/18 [History] atorvaSTATin [Lipitor] 10 mg PO BEDTIME 06/09/18 [History] predniSONE [Prednisone] 5 mg PO BID 06/09/18 [History] Glucosamine [Glucosamine Sulfate] 1 tab PO DAILY 06/10/18 [History] Furosemide [Lasix] 20 mg PO DAILY 30 Days #30 tab 06/11/18 [Rx] Patient Handouts: Furosemide tablets, Pleural Effusion - Discharge Summary/Plan Comment DC Time >30 min.: No - Patient Data Vitals - Most Recent: Last Vital Signs Temp 36.0 C 06/11/18 07:40 Pulse 81 06/11/18 07:40 Resp 18 06/11/18 07:40 BP 139/65 06/11/18 07:40 Pulse Ox 94 L 06/11/18 07:40 Weight - Most Recent: 69 kg I&O - Last 24 hours: Intake & Output 06/10/18 06/11/18 06/11/18 22:59 06:59 14:59 Intake Total 550 600 Output Total 580 750 Balance -30 -150 Lab Results - Last 24 hrs: Laboratory Results - last 24 hr 06/10/18 06/10/18 06/11/18 Range/Units 05:50 05:53 05:03 WBC 5.04 (4.0-11.0) K/uL RBC 3.62 L (4.50-5.90) M/uL Hgb 9.8 L (13.0-17.0) g/dL Hct 33.0 L (38.0-50.0) % MCV 91.2 (80.0-98.0) fL MCH 27.1 (27.0-32.0) pg MCHC 29.7 L (31.0-37.0) g/dL RDW Std Deviation 71.7 H (28.0-62.0) fl RDW Coeff of Ben 21 H (11.0-15.0) % Plt Count 264 (150-400) K/uL MPV 8.30 (7.40-12.00) fL Neut % (Auto) 76.4 (48.0-80.0) % Lymph % (Auto) 8.5 L (16.0-40.0) % [place] % (Auto) 12.9 (0.0-15.0) % Eos % (Auto) 1.6 (0.0-7.0) % Baso % (Auto) 0.6 (0.0-1.5) % Neut # (Auto) 3.9 (1.4-5.7) K/uL Lymph # (Auto) 0.4 L (0.6-2.4) K/uL [place] # (Auto) 0.7 (0.0-0.8) K/uL Eos # (Auto) 0.1 (0.0-0.7) K/uL Baso # (Auto) 0.0 (0.0-0.1) K/uL Nucleated RBC % 0.0 /100WBC Nucleated RBCs # 0 K/uL Sodium (136-148) mmol/L Potassium (3.5-5.1) mmol/L Chloride (98-107) mmol/L Carbon Dioxide (21.0-32.0) mmol/L BUN (7.0-18.0) mg/dL Creatinine (0.8-1.3) mg/dL Est Cr Clr Drug Dosing mL/min Estimated GFR (MDRD) ml/min Glucose (74-106) mg/dL Hemoglobin A1c 6.3 H (4.5-6.2) % Calcium (8.5-10.1) mg/dL Lactate Dehydrogenase 257 H (81-234) U/L 06/11/18 Range/Units 05:03 WBC (4.0-11.0) K/uL RBC (4.50-5.90) M/uL Hgb (13.0-17.0) g/dL Hct (38.0-50.0) % MCV (80.0-98.0) fL MCH (27.0-32.0) pg MCHC (31.0-37.0) g/dL RDW Std Deviation (28.0-62.0) fl RDW Coeff of Ben (11.0-15.0) % Plt Count (150-400) K/uL MPV (7.40-12.00) fL Neut % (Auto) (48.0-80.0) % Lymph % (Auto) (16.0-40.0) % [place] % (Auto) (0.0-15.0) % Eos % (Auto) (0.0-7.0) % Baso % (Auto) (0.0-1.5) % Neut # (Auto) (1.4-5.7) K/uL Lymph # (Auto) (0.6-2.4) K/uL [place] # (Auto) (0.0-0.8) K/uL Eos # (Auto) (0.0-0.7) K/uL Baso # (Auto) (0.0-0.1) K/uL Nucleated RBC % /100WBC Nucleated RBCs # K/uL Sodium 142 (136-148) mmol/L Potassium 4.1 (3.5-5.1) mmol/L Chloride 103 (98-107) mmol/L Carbon Dioxide 38.5 H (21.0-32.0) mmol/L BUN 13 (7.0-18.0) mg/dL Creatinine 0.5 L (0.8-1.3) mg/dL Est Cr Clr Drug Dosing 137.89 mL/min Estimated GFR (MDRD) > 60.0 ml/min Glucose 92 (74-106) mg/dL Hemoglobin A1c (4.5-6.2) % Calcium 8.9 (8.5-10.1) mg/dL Lactate Dehydrogenase (81-234) U/L CHEMA Results - Last 24 hrs: Microbiology 06/09/18 12:55 Gram Stain - Final Sputum - Expectorated Sputum Culture - Preliminary Klebsiella Pneumoniae Normal Respiratory [place] Med Orders - Current: Current Medications Acetaminophen (Tylenol) 650 mg PO Q4H PRN PRN Reason: Pain (Mild 1-3)/fever Albuterol/Ipratropium (Duoneb 3.0-0.5 Mg/3 Ml) 3 ml NEB Q4HRRT PRN PRN Reason: Shortness Of Breath/wheezing Last Admin: 06/10/18 20:54 Dose: 3 ml Atorvastatin Calcium (Lipitor) 10 mg PO BEDTIME [facility] Last Admin: 06/10/18 20:54 Dose: 10 mg Calcium Carbonate (Caltrate 600+D 1500 Mg-400 Units) 1 tab PO BID [facility] Last Admin: 06/11/18 08:52 Dose: 1 tab Docusate Sodium (Colace) 100 mg PO BID PRN PRN Reason: Constipation Enoxaparin Sodium (Lovenox) 40 mg SUBCUT Q24H [facility] Last Admin: 06/10/18 15:57 Dose: 40 mg Fish Oil (Fish Oil) 1 gm PO TID [facility] Last Admin: 06/11/18 05:40 Dose: 1 gm Ibuprofen (Motrin) 800 mg PO Q6H PRN PRN Reason: Pain (mild 1-3) Ketorolac Tromethamine (Toradol) 30 mg IM Q6H PRN PRN Reason: Pain (moderate 4-6) Mirtazapine (Remeron) 30 mg PO BEDTIME [facility] Last Admin: 06/10/18 20:54 Dose: 30 mg Morphine Sulfate (Morphine) 2 mg IVPUSH Q2H PRN PRN Reason: Pain Ondansetron HCl (Zofran Odt) 4 mg PO Q4H PRN PRN Reason: nausea, able to take PO Ondansetron HCl (Zofran) 4 mg IVPUSH Q4H PRN PRN Reason: Nausea Polyethylene Glycol (Miralax) 17 gm PO DAILY PRN PRN Reason: Constipation Prednisone (Prednisone) 5 mg PO BID [facility] Last Admin: 06/11/18 08:52 Dose: 5 mg Prochlorperazine Maleate (Compazine) 10 mg PO Q6H PRN PRN Reason: Nausea Sodium Chloride (Saline Flush) 10 ml FLUSH ASDIRECTED PRN PRN Reason: Keep Vein Open Sodium Chloride (Saline Flush) 2.5 ml FLUSH ASDIRECTED PRN PRN Reason: Keep Vein Open Tamsulosin HCl (Flomax) 0.4 mg PO DAILY [facility] Last Admin: 06/11/18 08:52 Dose: 0.4 mg Temazepam (Restoril) 15 mg PO BEDTIME PRN PRN Reason: Sleep Discontinued Medications Albuterol/Ipratropium (Duoneb 3.0-0.5 Mg/3 Ml) 3 ml NEB ONETIME ONE Stop: 06/09/18 12:38 Last Admin: 06/09/18 12:45 Dose: 3 ml Furosemide (Lasix) 20 mg IVPUSH NOW ONE Stop: 06/09/18 15:41 Last Admin: 06/09/18 16:13 Dose: 20 mg
[2018-06-11] MEDS: Albuterol/Ipratropium 3.0-0.5 MG/3 ML Neb Soln NEB PRN (10:22)
--- NOTE | 2018-06-15 14:18 | ECHO ---
EXAM DATE: 06/09/18 PATIENT'S AGE: 73 The echocardiogram report can be seen in this patient's EMR (Electronic Medical Record) in the Reports section. The report has also been scanned into PACs. DELVIN
== END 2018-06-11 12:20 | disposition home or self-care (01) ==
LOC: MW.ED 12:25 → MW.MS 14:39
PROVIDERS: ADMIT Internal Medicine; ATTEND Internal Medicine
DX: J90 Pleural effusion, not elsewhere classified (principal); J96.21 Acute and chronic respiratory failure with hypoxia; C61 Malignant neoplasm of prostate; C78.00 Secondary malignant neoplasm of unspecified lung; D64.9 Anemia, unspecified; Z87.891 Personal history of nicotine dependence; Z87.01 Personal history of pneumonia (recurrent); Z79.52 Long term (current) use of systemic steroids; Z79.899 Other long term (current) drug therapy
CPT/HCPCS: 32555; 36415; 71045; 80048; 80053; 83036; 83615; 83880; 84484; 85025; 85610; 87070; 87077; 87186; 87205; 87804; 93005; 93306; 94640; 96372; 96374; 97161; 99285; A9270; C1729; G0378; J1650; 99282; J7620-GY

== ENCOUNTER 2018-07-29 16:15 | Observation (INO) | payer MEDICARE ==
[2018-07-29] MEDS ORDERED: Sodium Chloride 0.9% 2.5 ML Syringe FLUSH PRN (16:31)
[2018-07-29] MEDS ORDERED: Acetaminophen/HYDROcodone 325-5 MG Tab PO PRN (16:31)
[2018-07-29] MEDS ORDERED: Acetaminophen 325 MG Tab PO PRN (16:31)
[2018-07-29] MEDS ORDERED: Ondansetron 4 MG/2 ML SDV IVPUSH PRN (16:31)
--- NOTE | 2018-07-29 16:45 | PCM.HP ---
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 He had R sided thoracentesis today with subsequent tiny pneumothorax post thoracentesis, measuring approximately 5 mm. He was monitored in Radiology and several hours and repeat showed slightly increase in pneumothorax to roughly 7mm. Patient lives nearly [address] French, Radiologist would like to monitor him overnight due to pain and increased pneumothorax. He recommends CXR this evening around 2200 and then in the am. Car reports he is having some pleuritic chest pain on the R with inspiration. He has cough with clear sputum production, which is at baseline. He recently had chemotherapy for prostate ca. Reports feeling great yesterday post L sided thoracentesis, today after the R side he reports not feeling as good. Reports shortness of breath and slight increase in oxygen needs. He normally is on 3 L humidified oxygen. He will be admitted observation for pneumothorax post thoracentesis. he is receiving Xtandi and ADT recently received on 07/27/2018. - Related Data Allergies/Adverse Reactions: Allergies Allergy/AdvReac Type Severity Reaction Status Date / Time No Known Allergies Allergy Verified 10/13/14 08:28 Home Medications: Home Meds Calcium Carbonate/Vitamin D3 [Calcium 500-Vit D3 200 Caplet] 1 tab PO BID [History] Fish Oil/[place]-3 Fatty Acids [Fish Oil 1,000 MG] 1 cap PO TID 06/09/18 [History] Leuprolide Acetate [Eligard] 45 mg SQ ASDIRECTED 06/09/18 [History] Mirtazapine 30 mg PO BEDTIME 06/09/18 [History] Prochlorperazine Maleate [Compazine] 10 mg PO Q6H PRN 06/09/18 [History] Tamsulosin [Flomax] 0.4 mg PO DAILY 06/09/18 [History] atorvaSTATin [Lipitor] 10 mg PO BEDTIME 06/09/18 [History] predniSONE [Prednisone] 5 mg PO BID 06/09/18 [History] Glucosamine [Glucosamine Sulfate] 1 tab PO DAILY 06/10/18 [History] Furosemide [Lasix] 20 mg PO DAILY 30 Days #30 tab 06/11/18 [Rx] Past Medical History HEENT History: Reports: Impaired Vision Cardiovascular History: Reports: Hypertension (currently not taking any medications). Denies: [place] Respiratory History: Reports: Other (See Below) Other Respiratory History: prostate CA with mets to lungs Genitourinary History: Reports: Other (See Below) Other Genitourinary History: metastatic prostate cancer- chemo Oncologic (Cancer) History: Reports: Lung, Prostate (metastatic) - Infectious Disease History Infectious Disease History: Reports: Chicken Pox, Measles, Mumps - Past Surgical History Other HEENT Surgeries/Procedures: wears eyeglass & dentures Respiratory Surgical History: Reports: Thoracentesis Other Respiratory Surgeries/Procedures: uses O2 @ 3L at home Social & Family History - Family History Family Medical History: Noncontributory - Tobacco Use Smoking Status *Q: Former Smoker (50+ years) - Caffeine Use Caffeine Use: Reports: None - Alcohol Use Alcohol Use History: No H&P Review of Systems - Review of Systems: Review Of Systems: See Below General: Reports: No Symptoms. Denies: Fever, Chills, Malaise HEENT: Reports: No Symptoms. Denies: Headaches, Sore Throat, Visual Changes Pulmonary: Reports: Shortness of Breath, Pleuritic Chest Pain (R sided post thoracentesis), Cough, Sputum (white) Cardiovascular: Reports: Edema (to BLE, but at baseline.). Denies: Chest Pain, Dyspnea on Exertion, Syncope Gastrointestinal: Reports: No Symptoms. Denies: Abdominal Pain, Black Stool, Bloody Stool, Flatus Genitourinary: Reports: No Symptoms. Denies: Dysuria, Frequency, Burning Skin: Reports: No Symptoms Neurological: Reports: No Symptoms Hematologic/Lymphatic: Reports: No Symptoms Immunologic: Reports: No Symptoms Exam - Exam Exam: See Below - Exam Quality Assessment: Supplemental Oxygen General: Alert, Oriented, Cooperative HEENT: Conjunctiva Clear, Mucosa Moist & [place] Lungs: Decreased Breath Sounds (R middle lobe), Crackles (bibasilar). No: Normal Respiratory Effort (dyspnea) Cardiovascular: Regular Rate, Regular Rhythm, Normal S1, Normal S2. No: Tachycardia, Systolic Murmur GI/Abdominal Exam: Normal Bowel Sounds, Soft, Non-Tender, No Organomegaly Extremities: Normal Range of Motion, Non-Tender, Pedal Edema (+3 pitting edema from knees extending down to feet bilaterally) Skin: Warm, Dry Neuro Extensive - Mental Status: Alert, Oriented x3 Neuro Extensive - Motor, Sensory, Reflexes: CN II-XII Intact Psychiatric: Alert, Normal Affect, Normal Mood - Problem List (1) Pneumothorax on right SNOMED Code(s): 757699213 ICD Code: J93.9 - PNEUMOTHORAX, UNSPECIFIED Status: Acute Current Visit: Yes (2) Prostate cancer metastatic to lung SNOMED Code(s): 81365473 ICD Code: C61 - MALIGNANT NEOPLASM OF PROSTATE; C78.00 - SECONDARY MALIGNANT NEOPLASM OF UNSPECIFIED LUNG Status: Chronic Current Visit: Yes (3) HTN (hypertension) SNOMED Code(s): 89308342 ICD Code: I10 - ESSENTIAL (PRIMARY) HYPERTENSION Status: Chronic Current Visit: Yes Qualifiers: Hypertension type: essential hypertension Qualified Code(s): I10 - Essential (primary) hypertension (4) Oxygen dependent SNOMED Code(s): 516310888446 ICD Code: Z99.81 - DEPENDENCE ON SUPPLEMENTAL OXYGEN Status: Chronic Current Visit: Yes (5) Recurrent pleural effusion on left SNOMED Code(s): 14909599 ICD Code: J90 - PLEURAL EFFUSION, NOT ELSEWHERE CLASSIFIED Status: Chronic Current Visit: Yes (6) Recurrent pleural effusion on right SNOMED Code(s): 98689937 ICD Code: J90 - PLEURAL EFFUSION, NOT ELSEWHERE CLASSIFIED Status: Chronic Current Visit: Yes Problem List Initiated/Reviewed/Updated: Yes Orders Last 24hrs: Active Orders 24 hr Category Date Time Status Patient Status [ADT] Routine ADT 07/29/18 16:33 Ordered Communication Order [RC] ROUTINE Care 07/29/18 16:38 Ordered Intake and Output [RC] QSHIFT Care 07/29/18 16:34 Ordered Oxygen Therapy [RC] PRN Care 07/29/18 16:33 Ordered Pulse Oximetry [RC] CONTINUOUS Care 07/29/18 16:34 Ordered Up With Assistance [RC] ASDIRECTED Care 07/29/18 16:31 Ordered VTE/DVT Education [RC] PER UNIT ROUTINE Care 07/29/18 16:33 Ordered Vital Signs [RC] Q4H Care 07/29/18 16:33 Ordered Regular Diet [DIET] Diet 07/29/18 Dinner Ordered Chest 2V [CR] Timed Exams 07/29/18 22:00 Ordered Acetaminophen [Tylenol] Med 07/29/18 16:31 Ordered 650 mg PO Q4H PRN Acetaminophen/HYDROcodone [[place] 325-5 MG] Med 07/29/18 16:31 Ordered 1 - 2 tab PO Q4H PRN Ondansetron [Zofran] Med 07/29/18 16:31 Ordered 4 mg IVPUSH Q4H PRN Sodium Chloride 0.9% [Saline Flush] Med 07/29/18 16:31 Ordered 2.5 ml FLUSH ASDIRECTED PRN Saline Lock Insert [OM.PC] Routine Oth 07/29/18 16:31 Ordered Resuscitation Status Routine Resus Stat 07/29/18 16:31 Ordered Medication Orders Acetaminophen (Tylenol) 650 mg PO Q4H PRN PRN Reason: Pain (mild 1-3) Hydrocodone Bitart/Acetaminophen ([place] 325-5 Mg) 1 - 2 tab PO Q4H PRN PRN Reason: Pain (moderate 4-6) Ondansetron HCl (Zofran) 4 mg IVPUSH Q4H PRN PRN Reason: Nausea Sodium Chloride (Saline Flush) 2.5 ml FLUSH ASDIRECTED PRN PRN Reason: Keep Vein Open Assessment/Plan Comment:: This 73 year old male admitted with pneumothorax post thoracentesis 1. R sided pneumothorax: Will place on 100% oxygen non breather mask overnight. Pain control PRN. Will repeat CXR this evening and in am. VTE prophylaxis: SCDs only due to recent thoracentesis. Dispo: 1-2 days.
[2018-07-29] MEDS ORDERED: Morphine 2 MG/ML Syringe IVPUSH PRN (17:01)
--- NOTE | 2018-07-29 22:20 | CR ---
INDICATION: Pneumothorax TECHNIQUE: Chest 2 views. 9:53 p.m. COMPARISON: 3:37 p.m. FINDINGS: Cardiovascular and mediastinum: Heart size and vasculature are normal in caliber and appearance. Mediastinum is within normal limits. Lungs and pleural spaces: Stable bilateral lower lobe opacities. No sign of pleural effusion. Stable small right apical pneumothorax. Bones and soft tissues: No significant findings. IMPRESSION: Stable small right apical pneumothorax. Stable bilateral lower lobe opacities. Dictated by Vitaly Louie MD @ 07/29/2018 10:19:10 PM Dictated by: Vitaly Louie MD @ 07/29/2018 22:19:16 (Electronically Signed)
--- NOTE | 2018-07-30 07:49 | CR ---
INDICATION: Evaluate pneumothorax. COMPARISON: Chest radiograph June 09, 2018, June 16, 2018 and July 29, 2018. Technique: Two-view chest. Findings: Difficult to identify the pneumothorax at the right lung apex when compared to July 29, 2018. Bilateral pleural effusion with evidence of pulmonary congestion. Stable cardiomegaly. Diffuse sclerotic skeletal metastases involving the in entire thoracic cage. Impression : No pneumothorax on the right side. 1. Diffuse skeletal metastases. 2. Pulmonary congestion with bilateral pleural effusion. Dictated by Henrik Arreaga MD @ Jul 30 2018 7:44AM Signed by Dr. Henrik Arreaga @ Jul 30 2018 7:47AM
[2018-07-30] MEDS ORDERED: Albuterol/Ipratropium 3.0-0.5 MG/3 ML Neb Soln NEB PRN (08:06)
--- NOTE | 2018-07-30 10:40 | PCM.DCSUM1 ---
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 He had R sided thoracentesis today with subsequent tiny pneumothorax post thoracentesis, measuring approximately 5 mm. He was monitored in Radiology and several hours and repeat showed slightly increase in pneumothorax to roughly 7mm. Patient lives nearly [address] French, Radiologist would like to monitor him overnight due to pain and increased pneumothorax. He recommends CXR this evening around 2200 and then in the am. Car reports he is having some pleuritic chest pain on the R with inspiration. He has cough with clear sputum production, which is at baseline. He recently had chemotherapy for prostate ca. Reports feeling great yesterday post L sided thoracentesis, today after the R side he reports not feeling as good. Reports shortness of breath and slight increase in oxygen needs. He normally is on 3 L humidified oxygen. He will be admitted observation for pneumothorax post thoracentesis. he is receiving Xtandi and ADT recently received on 07/27/2018. Diagnosis: Stroke: No - Discharge Data Discharge Date: 07/30/18 Discharge Disposition: Home, Self-Care 01 Condition: Good - Discharge Diagnosis/Problem(s) (1) Pneumothorax on right SNOMED Code(s): 103669100 ICD Code: J93.9 - PNEUMOTHORAX, UNSPECIFIED Status: Acute Current Visit: Yes (2) Prostate cancer metastatic to lung SNOMED Code(s): 33182005 ICD Code: C61 - MALIGNANT NEOPLASM OF PROSTATE; C78.00 - SECONDARY MALIGNANT NEOPLASM OF UNSPECIFIED LUNG Status: Chronic Current Visit: Yes (3) HTN (hypertension) SNOMED Code(s): 49134614 ICD Code: I10 - ESSENTIAL (PRIMARY) HYPERTENSION Status: Chronic Current Visit: Yes Qualifiers: Hypertension type: essential hypertension Qualified Code(s): I10 - Essential (primary) hypertension (4) Oxygen dependent SNOMED Code(s): 437435071351 ICD Code: Z99.81 - DEPENDENCE ON SUPPLEMENTAL OXYGEN Status: Chronic Current Visit: Yes (5) Recurrent pleural effusion on left SNOMED Code(s): 76919899 ICD Code: J90 - PLEURAL EFFUSION, NOT ELSEWHERE CLASSIFIED Status: Chronic Current Visit: Yes (6) Recurrent pleural effusion on right SNOMED Code(s): 24085962 ICD Code: J90 - PLEURAL EFFUSION, NOT ELSEWHERE CLASSIFIED Status: Chronic Current Visit: Yes - Patient Instructions Diet: Usual Diet as Tolerated Activity: As Tolerated, Rest and Relax Today Showering/Bathing: May Shower Notify Provider of: Fever, Increased Pain, Swelling and Redness, Drainage, Nausea and/or Vomiting - Discharge Plan *PRESCRIPTION DRUG MONITORING PROGRAM REVIEWED*: Not Applicable *COPY OF PRESCRIPTION DRUG MONITORING REPORT IN PATIENT BILL: Not Applicable Home Medications: Home Meds Calcium Carbonate/Vitamin D3 [Calcium 500-Vit D3 200 Caplet] 1 tab PO BID [History] Fish Oil/[place]-3 Fatty Acids [Fish Oil 1,000 MG] 1 cap PO TID 06/09/18 [History] Leuprolide Acetate [Eligard] 45 mg SQ ASDIRECTED 06/09/18 [History] Mirtazapine 30 mg PO BEDTIME 06/09/18 [History] Prochlorperazine Maleate [Compazine] 10 mg PO Q6H PRN 06/09/18 [History] Tamsulosin [Flomax] 0.4 mg PO DAILY 06/09/18 [History] atorvaSTATin [Lipitor] 10 mg PO BEDTIME 06/09/18 [History] predniSONE [Prednisone] 5 mg PO BID 06/09/18 [History] Glucosamine [Glucosamine Sulfate] 1 tab PO DAILY 06/10/18 [History] Furosemide [Lasix] 20 mg PO DAILY 30 Days #30 tab 06/11/18 [Rx] Albuterol Sulfate 0.63 mg IH BID 07/30/18 [History] Ipratropium [place] 0.2 mg IH BID 07/30/18 [History] Oxygen Therapy Mode: Nasal Cannula Oxygen Flow Rate (L/min): 3 Patient Handouts: Thoracentesis, Care After, Pneumothorax, Pleural Effusion - Discharge Summary/Plan Comment DC Time >30 min.: No Discharge Summary/Plan Comment: Discharge Diagnoses; R sided pneumothorax post thoracentesis- resolved Metastatic prostate Ca Oxygen dependent Recurrent bilateral pleural effusions Car was admitted and treated with 100% oxygen via non-rebreather overnight and continuous pulse ox. He has done well overnight. CXR this morning reveals no further pneumothorax. This was reviewed with Dr French, who agrees patient is safe to be discharged home. Car is feeling much better today and breathing easier. He is eager to be discharged home. He is to follow up as previously scheduled with Oncology. He is to return to ED or clinic if concerns should arise sooner. - General Info Date of Service: 07/30/18 Admission Dx/Problem (Free Text: Admission Diagnosis/Problem Admission Diagnosis/Problem Pneumothorax on right Subjective Update: Sitting in bed, eager to be discharged home. Dr French recently visited with patient. No chest pain. Shortness of breath is back to baseline. No concerns. Functional Status: Reports: Pain Controlled, Tolerating Diet, Ambulating, Urinating - Review of Systems General: Reports: No Symptoms. Denies: Fever, Weakness, Fatigue, Malaise HEENT: Reports: No Symptoms. Denies: Headaches, Sore Throat, Rhinitis Pulmonary: Reports: Shortness of Breath (at baseline), Cough, Sputum (clear). Denies: Pleuritic Chest Pain, Wheezing Cardiovascular: Reports: No Symptoms, Dyspnea on Exertion (basleine), Edema ( baseline to BLE). Denies: Chest Pain Gastrointestinal: Reports: No Symptoms. Denies: Abdominal Pain, Nausea, Vomiting Genitourinary: Reports: No Symptoms Neurological: Reports: No Symptoms Psychiatric: Reports: No Symptoms - Patient Data Vitals - Most Recent: Last Vital Signs Temp 97.5 F 07/30/18 07:30 Pulse 85 07/30/18 09:06 Resp 22 H 07/30/18 07:30 BP 126/67 07/30/18 07:30 Pulse Ox 91 L 07/30/18 09:06 Weight - Most Recent: 79.435 kg I&O - Last 24 hours: Intake & Output 07/29/18 07/30/18 07/30/18 22:59 06:59 14:59 Intake Total 300 Output Total 250 100 Balance -250 200 Med Orders - Current: Current Medications Acetaminophen (Tylenol) 650 mg PO Q4H PRN PRN Reason: Pain (mild 1-3) Hydrocodone Bitart/Acetaminophen ([place] 325-5 Mg) 1 - 2 tab PO Q4H PRN PRN Reason: Pain (moderate 4-6) Albuterol/Ipratropium (Duoneb 3.0-0.5 Mg/3 Ml) 3 ml NEB Q4HRRT PRN PRN Reason: sob/wheezing Last Admin: 07/30/18 09:03 Dose: 3 ml Morphine Sulfate (Morphine) 2 mg IVPUSH Q4H PRN PRN Reason: Pain Ondansetron HCl (Zofran) 4 mg IVPUSH Q4H PRN PRN Reason: Nausea Sodium Chloride (Saline Flush) 2.5 ml FLUSH ASDIRECTED PRN PRN Reason: Keep Vein Open - Exam General: Reports: Alert, Oriented, Cooperative, No Acute Distress Neck: Reports: Supple Lungs: Reports: Normal Respiratory Effort, Crackles (throughout) Cardiovascular: Reports: Regular Rate, Regular Rhythm GI/Abdominal Exam: Normal Bowel Sounds, Soft, Non-Tender, No Organomegaly Back Exam: Reports: Normal Inspection, Full Range of Motion Extremities: Normal Inspection, Normal Range of Motion, Non-Tender, Pedal Edema (+3 pitting edema to BLE, reports at baseline) Neurological: Reports: No New Focal Deficit Psy/Mental Status: Reports: Alert, Normal Affect, Normal Mood
== END 2018-07-30 11:40 | disposition home or self-care (01) ==
LOC: MW.MS 16:15
PROVIDERS: ADMIT Internal Medicine; ATTEND Internal Medicine
DX: J93.9 Pneumothorax, unspecified (principal); J90 Pleural effusion, not elsewhere classified; C61 Malignant neoplasm of prostate; C78.00 Secondary malignant neoplasm of unspecified lung; C79.51 Secondary malignant neoplasm of bone; I10 Essential (primary) hypertension; Z99.81 Dependence on supplemental oxygen; Z79.899 Other long term (current) drug therapy; Z87.891 Personal history of nicotine dependence
CPT/HCPCS: 71046; G0378; J7620-GY